=== PATIENT | female | born 1965 | race African-American/Black ===

== ENCOUNTER 2017-03-10 20:36 | Emergency (ER) | payer BC ==
[~2017-03-10] VITALS: Ht 167.6 cm; Wt 90.9 kg
[~2017-03-10 20:36] MED LIST: ACET-1359 PO; ASPI500T19 PO; EPIN0.3P8 IM; ETOD300C26 PO; HYDR200T39 PO; IBUP200C11 PO; MYCO250C6 PO; TRAM-40 PO; [UNRECOGNIZED DRUG - CODE] PO
[2017-03-10 20:44] VITALS: Ht 167.6 cm; Wt 90.9 kg
[2017-03-10] MEDS ORDERED: AZIT250T94 PO (21:04)
[2017-03-10] MEDS ORDERED: FLUC150T17 PO (21:05)
[2017-03-10] MEDS ORDERED: HYDR-902 PO (21:05)
--- NOTE | 2017-03-10 21:08 | ERD ---
ER Documentation Chief Complaint Date/Time DATE: 03/10/17 TIME: 21:06 Chief Complaint sore throat x 2 days with a cough HPI This is a 51-year-old female with a sore throat and cough for the past 3 days. She did describes her throat as a sharp pain when she swallows with a dry cough and some fever of 103. No hoarse voice no headache no vomiting shortness of breath or neck swelling ROS All systems reviewed and are negative except as per history of present illness. Medications Home Meds Active Scripts Fluconazole* (Diflucan*) 150 Mg Tablet, 150 MG PO ONCE, #2 TAB repeat dose in 7 days Prov:AYDIN WHEELER DO 03/10/17 Hydrocodone/Acetaminophen ([place] 10-325 Tablet) 1 Each Tablet, 1 TAB PO Q6H Y for PAIN, #20 TAB Prov:AYDIN WHEELER DO 03/10/17 Azithromycin* (Zithromax*) 250 Mg Tablet, 250 MG PO .ZPACK DIRECTED, #6 TAB TAKE 500 MG (2 TABS) THE FIRST DAY THEN 250 MG (1 TAB) DAYS 2-5 Prov:AYDIN WHEELER DO 03/10/17 Tramadol Hcl* (Ultram*) 50 Mg Tablet, 50 MG PO Q6H Y for PAIN, #1 TAB Prov:SOLEDAD AGUIAR MD 05/30/16 Reported Medications Aspirin (TK ADVANCED) 500 Mg Tablet, 500 MG PO BID 06/09/13 Ibuprofen* (Advil*) 200 Mg Capsule, 200 MG PO TID 06/09/13 Acetaminophen (TYLENOL 500 MG TAB) 500 Mg Tab, 500 MG PO BID Y 06/09/13 Epinephrine (Epipen) 0.3 Mg/0.3/Syringe Pen.injctr, 0.3 MG IM Y 04/29/12 Mycophenolate Mofetil (Cellcept) 250 Mg Capsule, 250 MG PO DAILY for 14 Days 04/28/12 Hydroxychloroquine Sulfate* (Hydroxychloroquine Sulfate*) 200 Mg Tablet, 200 MG PO BID 04/28/12 Etodolac (Etodolac) 300 Mg Capsule, 300 MG PO BID 04/28/12 Hydrocodone Bit/Acetaminophen (Hydrocodone-Apap 7.5-325 Mg Tb) 1 Tab Tablet, 1 TAB PO Q8 Y 04/28/12 Allergies Allergies: Coded Allergies: morphine (Verified Allergy, Severe, hives, 06/09/13) kiwi (Verified Allergy, Mild, foods allergy,tinglings lips, 06/09/13) red (food color) (Verified Allergy, Mild, tinglings lips, 06/09/13) PMhx/Soc History of Surgery: Yes (see notes) Anesthesia Reaction: No Hx Neurological Disorder: Yes (MYASTHENIA GRAVIS, SYSTEMIC LUPUS ERYTHEMATOSUS) Hx Respiratory Disorders: Yes (Asthma) Hx Cardiac Disorders: No Hx Psychiatric Problems: No Hx Miscellaneous Medical Probl: Yes (see notes) Hx Alcohol Use: Yes (OCCASIONALLY) Hx Substance Use: No Hx Tobacco Use: No Smoking Status: Never smoker FmHx Family History: No coronary disease Physical Exam Vitals Vital Signs Date Time Temp Pulse Resp B/P Pulse Ox O2 Delivery O2 Flow Rate FiO2 03/10/17 20:44 98.2 101 18 139/83 99 Physical Exam Const: Well-developed, well-nourished Head: Atraumatic, normocephalic Eyes: Normal Conjunctiva, PERRLA, EOMI, normal sclera, no nystagmus ENT: Normal External Ears, oropharynx has swollen peritonsillar area and tonsils with deep red throat and exudate, no airway compromise nose and Mouth, moist mucus membranes. Neck: Full range of motion. No meningismus, no lymphadenopathy. Resp: Clear to auscultation bilaterally, no wheezing, rhonchi, rales Cardio: Regular rate and rhythm, no murmurs, S1 S2 present Abd: Soft, non tender x 4, non distended. Normal bowel sounds, no guarding or rebound, no pulsitile abdominal masses or bruits Skin: No petechiae or rashes, no ecchymosis , no maculopapular rash Back: No midline or flank tenderness Ext: No cyanosis, or edema, FROM x 4, normal inspection, neurovascularly intact x 4 Neur: Awake and alert, STR 5/5 x 4, sensation intact x 4, no focal findings, cerebellum intact Psych: Normal Mood and Affect Procedures/MDM We will give Bicillin LA intramuscularly as well as Zithromax and pain Departure Diagnosis: Primary Impression: Pharyngitis Pharyngitis/tonsillitis etiology: unspecified etiology Qualified Code: J02.9 - Pharyngitis, unspecified etiology Condition: Stable Patient Instructions: When Your Child Has Pharyngitis or Tonsillitis , Pharyngitis, Strep (Presumed) AYDIN WHEELER DO Mar 10, 2017 21:08
[2017-03-10] MEDS ORDERED: LIDOCAINE 1% (MDV) 20 ML INJ IM ONE (21:30)
[2017-03-10] MEDS ORDERED: PENICILLIN G BENZ 1.2 MIL UNIT SYG IM ONE (21:30)
== END 2017-03-10 21:45 | disposition home or self-care (01) ==
LOC: E/R 20:36
DX: J02.9 Acute pharyngitis, unspecified (principal); J45.909 Unspecified asthma, uncomplicated; Z79.82 Long term (current) use of aspirin
CPT/HCPCS: 96372; 99284; J0561

== ENCOUNTER 2017-03-23 01:14 | Emergency (ER) | payer BC ==
[~2017-03-23] VITALS: Wt 87.0 kg
[~2017-03-23 01:14] MED LIST changes: +AZIT250T94 PO; +FLUC150T17 PO; +HYDR-902 PO
[2017-03-23] MEDS ORDERED: KETOROLAC 30 MG INJ IM STA (01:30)
[2017-03-23] MEDS ORDERED: NAPR-260 PO (01:36)
[2017-03-23] MEDS: OXYCODONE/ACETAMINOPHEN (5/325) TAB PO ONE ×2 (01:38→01:56)
--- NOTE | 2017-03-23 03:01 | ERD ---
ER Documentation Chief Complaint Date/Time DATE: 03/23/17 TIME: 02:57 Chief Complaint Left jaw pain HPI 51-year-old woman complains of left lower molar dental pain which radiates down to the left inferior mandible. She states she has a dentist appointment scheduled in 2 days for dental bridge repair. She denies discharge from the tooth or gingiva, no sore throat, no difficulty swallowing or speaking. Patient was diagnosed with pharyngitis from this ED just about a week ago and prescribed oral antibiotics and opioid analgesics. She has had no chest pain or shortness of breath, no headache or neck pain, no paresis or paresthesias. ROS All systems reviewed and are negative except as per history of present illness. Medications Home Meds Active Scripts Naproxen* (Naprosyn*) 500 Mg Tablet, 500 MG PO BID Y for PAIN AND/OR INFLAMMATION, #30 TAB Prov:LUPE FUNES MD 03/23/17 Fluconazole* (Diflucan*) 150 Mg Tablet, 150 MG PO ONCE, #2 TAB repeat dose in 7 days Prov:AYDIN WHEELER DO 03/10/17 Hydrocodone/Acetaminophen ([place] 10-325 Tablet) 1 Each Tablet, 1 TAB PO Q6H Y for PAIN, #20 TAB Prov:AYDIN WHEELER DO 03/10/17 Azithromycin* (Zithromax*) 250 Mg Tablet, 250 MG PO .ZPACK DIRECTED, #6 TAB TAKE 500 MG (2 TABS) THE FIRST DAY THEN 250 MG (1 TAB) DAYS 2-5 Prov:AYDIN WHEELER DO 03/10/17 Tramadol Hcl* (Ultram*) 50 Mg Tablet, 50 MG PO Q6H Y for PAIN, #1 TAB Prov:SOLEDAD AGUIAR MD 05/30/16 Reported Medications Aspirin (TK ADVANCED) 500 Mg Tablet, 500 MG PO BID 06/09/13 Ibuprofen* (Advil*) 200 Mg Capsule, 200 MG PO TID 06/09/13 Acetaminophen (TYLENOL 500 MG TAB) 500 Mg Tab, 500 MG PO BID Y 06/09/13 Epinephrine (Epipen) 0.3 Mg/0.3/Syringe Pen.injctr, 0.3 MG IM Y 04/29/12 Mycophenolate Mofetil (Cellcept) 250 Mg Capsule, 250 MG PO DAILY for 14 Days 04/28/12 Hydroxychloroquine Sulfate* (Hydroxychloroquine Sulfate*) 200 Mg Tablet, 200 MG PO BID 04/28/12 Etodolac (Etodolac) 300 Mg Capsule, 300 MG PO BID 04/28/12 Hydrocodone Bit/Acetaminophen (Hydrocodone-Apap 7.5-325 Mg Tb) 1 Tab Tablet, 1 TAB PO Q8 Y 04/28/12 Allergies Allergies: Coded Allergies: morphine (Verified Allergy, Severe, hives, 06/09/13) kiwi (Verified Allergy, Mild, foods allergy,tinglings lips, 06/09/13) red (food color) (Verified Allergy, Mild, tinglings lips, 06/09/13) PMhx/Soc Past medical history reviewed History of Surgery: Yes (see notes) Anesthesia Reaction: No Hx Neurological Disorder: Yes (MYASTHENIA GRAVIS, SYSTEMIC LUPUS ERYTHEMATOSUS) Hx Respiratory Disorders: Yes (Asthma) Hx Cardiac Disorders: No Hx Psychiatric Problems: No Hx Miscellaneous Medical Probl: Yes (see notes) Hx Alcohol Use: Yes (OCCASIONALLY) Hx Substance Use: No Hx Tobacco Use: No Physical Exam Vitals Vital Signs Date Time Temp Pulse Resp B/P Pulse Ox O2 Delivery O2 Flow Rate FiO2 03/23/17 01:16 97.8 84 20 124/84 98 Physical Exam GENERAL: Well-developed, well-nourished, well-hydrated, in no apparent distress , looks nontoxic in appearance HEENT: Moist mucous membranes, pink conjunctiva, no cervical spine tenderness or step-off deformities, no goiter, no jaundice or icterus, extraocular movements intact without pain. No submandibular induration, and no pharyngeal erythema NEURO: Alert and oriented 3, cranial nerves II through XII intact bilaterally, pupils equal round reactive to light, no focal deficits or facial asymmetry, sensation intact distally Strength 5/5 in upper and lower extremities bilaterally CARDIAC: Regular rate and rhythm, no murmurs rubs or gallops LUNGS: Clear bilaterally no wheezing crackles or stridor ABDOMEN: Soft nontender, no guarding, no rigidity, no rebound, no psoas sign no obturator sign. Normoactive bowel sounds SKIN: Warm and dry to touch, no abrasions, contusions, or hematomas, no lacerations, no ecchymosis, no target lesions, and without ulcers EXTREMITIES: No clubbing cyanosis or edema, calves are bilaterally symmetrical, no Homans sign, no popliteal cord sign. Distal pulses equal and bilateral PSYCH: Normal affect without agitation or irritability Results 24 hrs Current Medications Medications (Trade) Dose Ordered Sig/Yisel Route PRN Reason Start Time Stop Time Status Last Admin Dose Admin Ketorolac Tromethamine (Toradol) 30 mg ONCE STAT IM 03/23/17 01:30 03/23/17 01:31 DC 03/23/17 01:35 Oxycodone/ Acetaminophen (Percocet (5/ 325)) 1 tab ONCE ONCE PO 03/23/17 02:00 03/23/17 02:01 DC 03/23/17 01:56 Procedures/MDM I administered Percocet 1 tablet p.o. and Toradol 30 mg intramuscular injection. Patient states her dental pain and jaw pain did improve after medications. She has dentist follow-up scheduled in 2 days. Patient will be managed as an outpatient I deferred opioid analgesic therapy or antibiotic therapy to her PMD and dentist. Patient feels much better at this time, and vital signs are normal, symptoms have improved. I did give strict instructions to return to the ED if symptoms continue or worsen, patient will otherwise follow-up with primary care physician. Patient understood instructions and agreed to plan. Disclaimer: Inadvertent spelling and grammatical errors are likely due to EHR/ dictation software use and do not reflect on the overall quality of patient care. Also, please note that the electronic time recorded on this note does not necessarily reflect the actual time of the patient encounter. Departure Diagnosis: Primary Impression: Pain, dental Condition: Good Patient Instructions: Dental Pain LUPE FUNES MD Mar 23, 2017 03:01
== END 2017-03-23 02:02 | disposition home or self-care (01) ==
LOC: E/R 01:14
DX: K08.89 Other specified disorders of teeth and supporting structures (principal); J45.909 Unspecified asthma, uncomplicated; Z79.82 Long term (current) use of aspirin
CPT/HCPCS: 96372; 99284; J1885

== ENCOUNTER 2017-03-27 10:46 | Emergency (ER) | payer BC ==
[~2017-03-27] VITALS: Ht 170.2 cm; Wt 70.0 kg
[~2017-03-27 10:46] MED LIST changes: +NAPR-260 PO
[2017-03-27 11:06] VITALS: Ht 170.2 cm; Wt 70.0 kg
[2017-03-27] MEDS ORDERED: ONDANSETRON 4 MG INJ IV STA (11:11)
[2017-03-27] MEDS ORDERED: HYDROmorphONE 1 MG/ML SYG IV STA (11:11)
[2017-03-27] MEDS ORDERED: AMPICILLIN/SULB 1.5GM/NS (PMX) 50 ML IVPB STA (11:11)
[2017-03-27] MEDS ORDERED: SOD CHLORIDE 0.9% 1,000 ML IV STA (11:11)
[2017-03-27] MEDS ORDERED: KETOROLAC 15 MG INJ IV STA (11:11)
[2017-03-27 11:35] LABS: BASOPHILS % 0.8 % (0.0-2.0); EOSINOPHILS # 0.1 10^3/ul (0.0-0.5); EOSINOPHILS % 1.4 % (0.0-7.0); HEMATOCRIT 36.9 % (37.0-47.0); LYMPHOCYTES # 1.9 10^3/ul (0.8-2.9); MEAN CORPUSCULAR HEMOGLOBIN 30.5 pg (29.0-33.0); MEAN CORPUSCULAR HGB CONC 32.5 g/dl (32.0-37.0); MEAN CORPUSCULAR VOLUME 93.7 fl (82.0-101.0); MEAN PLATELET VOLUME 9.8 fl (7.4-10.4); MONOCYTE # 0.5 10^3/ul (0.3-0.9); MONOCYTES % 8.7 % (0.0-11.0); NEUTROPHIL # 2.7 10^3/ul (1.6-7.5); NEUTROPHILS % 52.9 % (39.0-77.0); PLATELET COUNT 412 10^3/UL (140-415); RED BLOOD COUNT 3.94 10^6/ul (4.20-5.40); RED CELL DISTRIBUTION WIDTH 12.7 % (11.5-14.5); WHITE BLOOD COUNT 5.2 10^3/ul (4.8-10.8)
[2017-03-27 11:57] LABS: ALBUMIN 4.5 g/dl (3.3-4.9); BILIRUBIN,INDIRECT 0.5 mg/dl (0-1.1); BILIRUBIN,TOTAL 0.5 mg/dl (0.2-1.3); CALCIUM 10.5 mg/dl (8.4-10.2); CREATININE 0.83 mg/dl (0.44-1.00); POTASSIUM 4.1 mmol/L (3.5-5.1)
[2017-03-27] MEDS ORDERED: SOD CHLORIDE 0.9% 100 ML ONE (12:14)
[2017-03-27] MEDS ORDERED: IOHEXOL 300MG/ML 150 ML BTL ONE (12:14)
--- NOTE | 2017-03-27 13:01 | RADRPT ---
PROCEDURE: CT facial bones and neck with contrast CLINICAL INDICATION: Abscess, pain; recent left root canal. TECHNIQUE: A CT of the facial bones and neck was performed on a multidetector CT scanner utilizing thin axial images after the intravenous administration of 100 cc Isovue contrast. No reported comp lication. Sagittal and coronal reconstructions were provided. The CTDIvol is 10 mGy and the DLP is 316mGy-cm. One or more of the following dose reduction techniques were used: Automated exposure con trol, Adjustment of the mA and/or kV according to patient size, and/or use of iterative reconstructi on technique. COMPARISON: None available. FINDINGS: Extensive streak artifact from dental hardware obscures the oral cavity and lower facial soft tissue s on CT. Inflammatory stranding of the left anterior vitamin manager space is visualized. No definite ri m-enhancing fluid collection or aggressive erosive changes to the mandible are identified. There is trace left inferior maxillary sinus mucosal thickening. No layering sinus fluid identified. The bila teral pre-styloid parapharyngeal space is unremarkable. No retropharyngeal fluid collection is seen. No significant airway narrowing. Bilateral parotid and submandibular glands are unremarkable. The m ajor cervical vasculature are patent. Multinodular thyroid gland with largest nodule measuring 9 mm in the left lobe. No acute facial bone fracture identified. Degenerative changes of the cervical spi ne. IMPRESSION: Extensive streak artifact from dental hardware obscures the oral cavity and lower facial soft tissue s on CT. Inflammatory stranding of the left anterior vitamin manager space may be due to postoperative c hanges. No definite abscess or aggressive erosive changes to the mandible are identified. See details in the findings. RPTAT: AA .Harris Vergara MD, MD Date Time Electronically viewed and signed by .Harris Vergara MD, MD on 03/27/2017 13:01 .T/
--- NOTE | 2017-03-27 13:01 | RADRPT ---
PROCEDURE: CT facial bones and neck with contrast CLINICAL INDICATION: Abscess, pain; recent left root canal. TECHNIQUE: A CT of the facial bones and neck was performed on a multidetector CT scanner utilizing thin axial images after the intravenous administration of 100 cc Isovue contrast. No reported comp lication. Sagittal and coronal reconstructions were provided. The CTDIvol is 10 mGy and the DLP is 316mGy-cm. One or more of the following dose reduction techniques were used: Automated exposure con trol, Adjustment of the mA and/or kV according to patient size, and/or use of iterative reconstructi on technique. COMPARISON: None available. FINDINGS: Extensive streak artifact from dental hardware obscures the oral cavity and lower facial soft tissue s on CT. Inflammatory stranding of the left anterior company laborer space is visualized. No definite ri m-enhancing fluid collection or aggressive erosive changes to the mandible are identified. There is trace left inferior maxillary sinus mucosal thickening. No layering sinus fluid identified. The bila teral pre-styloid parapharyngeal space is unremarkable. No retropharyngeal fluid collection is seen. No significant airway narrowing. Bilateral parotid and submandibular glands are unremarkable. The m ajor cervical vasculature are patent. Multinodular thyroid gland with largest nodule measuring 9 mm in the left lobe. No acute facial bone fracture identified. Degenerative changes of the cervical spi ne. IMPRESSION: Extensive streak artifact from dental hardware obscures the oral cavity and lower facial soft tissue s on CT. Inflammatory stranding of the left anterior company laborer space may be due to postoperative c hanges. No definite abscess or aggressive erosive changes to the mandible are identified. See details in the findings. RPTAT: AA .Harris Vergara MD, MD Date Time Electronically viewed and signed by .Harris Vergara MD, MD on 03/27/2017 13:00 .T/
[2017-03-27] MEDS ORDERED: DEXAMETHASONE 10 MG/ML 1 ML INJ IV ONE (14:00)
[2017-03-27] MEDS ORDERED: TRAM-40 PO (14:41)
--- NOTE | 2017-03-27 14:50 | ERD ---
ER Documentation Chief Complaint Date/Time DATE: 03/27/17 TIME: 14:42 Chief Complaint LEFT SIDE OF JAW SWELLING AFTER DENTAL WORK FRIDAY HPI This 51-year-old female presents with left-sided jaw pain and swelling. History significant for being seen for dental pain last week. She had a root canal 4 days ago. She had significant swelling earlier in the week which is improved although pain is increased recently with difficulty opening her mouth pain beneath her left ear. She is able to tolerate p.o.'s. She has no measured fevers. She is taking ibuprofen for pain.Patient has a history of lupus and recently stopped a prolonged course of prednisone 20 mg a day ROS All systems reviewed and are negative except as per history of present illness. Medications Home Meds Active Scripts Tramadol Hcl* (Ultram*) 50 Mg Tablet, 50 MG PO Q6H Y for PAIN for 20 Days, TAB Prov:FADIA FELICIANO MD 03/27/17 Naproxen* (Naprosyn*) 500 Mg Tablet, 500 MG PO BID Y for PAIN AND/OR INFLAMMATION, #30 TAB Prov:LUPE FUNES MD 03/23/17 Hydrocodone/Acetaminophen ([place] 10-325 Tablet) 1 Each Tablet, 1 TAB PO Q6H Y for PAIN, #20 TAB Prov:AYDIN WHEELER DO 03/10/17 Tramadol Hcl* (Ultram*) 50 Mg Tablet, 50 MG PO Q6H Y for PAIN, #1 TAB Prov:SOLEDAD AGUIAR MD 05/30/16 Reported Medications Aspirin (TK ADVANCED) 500 Mg Tablet, 500 MG PO BID 06/09/13 Ibuprofen* (Advil*) 200 Mg Capsule, 200 MG PO TID 06/09/13 Acetaminophen (TYLENOL 500 MG TAB) 500 Mg Tab, 500 MG PO BID Y 06/09/13 Epinephrine (Epipen) 0.3 Mg/0.3/Syringe Pen.injctr, 0.3 MG IM Y 04/29/12 Mycophenolate Mofetil (Cellcept) 250 Mg Capsule, 250 MG PO DAILY for 14 Days 04/28/12 Hydroxychloroquine Sulfate* (Hydroxychloroquine Sulfate*) 200 Mg Tablet, 200 MG PO BID 04/28/12 Etodolac (Etodolac) 300 Mg Capsule, 300 MG PO BID 04/28/12 Hydrocodone Bit/Acetaminophen (Hydrocodone-Apap 7.5-325 Mg Tb) 1 Tab Tablet, 1 TAB PO Q8 Y 04/28/12 Discontinued Scripts Fluconazole* (Diflucan*) 150 Mg Tablet, 150 MG PO ONCE, #2 TAB repeat dose in 7 days Prov:AYDIN WHEELER DO 03/10/17 Azithromycin* (Zithromax*) 250 Mg Tablet, 250 MG PO .ZPACK DIRECTED, #6 TAB TAKE 500 MG (2 TABS) THE FIRST DAY THEN 250 MG (1 TAB) DAYS 2-5 Prov:AYDIN WHEELER DO 03/10/17 Allergies Allergies: Coded Allergies: morphine (Verified Allergy, Severe, hives, 06/09/13) kiwi (Verified Allergy, Mild, foods allergy,tinglings lips, 06/09/13) red (food color) (Verified Allergy, Mild, tinglings lips, 06/09/13) PMhx/Soc History of Surgery: Yes (see notes) Anesthesia Reaction: No Hx Neurological Disorder: Yes (MYASTHENIA GRAVIS, SYSTEMIC LUPUS ERYTHEMATOSUS) Hx Respiratory Disorders: Yes (Asthma) Hx Cardiac Disorders: No Hx Psychiatric Problems: No Hx Miscellaneous Medical Probl: Yes (see notes) Hx Alcohol Use: Yes (OCCASIONALLY) Hx Substance Use: No Hx Tobacco Use: No Physical Exam Vitals Vital Signs Date Time Temp Pulse Resp B/P Pulse Ox O2 Delivery O2 Flow Rate FiO2 03/27/17 11:06 99.0 80 18 132/98 100 Physical Exam Const: []Alert, uncomfortable due to pain, no apparent distress. Head: Atraumatic Eyes: Normal Conjunctiva ENT: Normal External Ears, Nose and Mouth.There is some tenderness below the left molar with recent root canal evidence. There is tenderness in the left anterior cervical area with some mild swelling. There is tenderness in the left infra-auricular area. Airways patent. Neck: Full range of motion..~ No meningismus. Resp: Clear to auscultation bilaterally Cardio: Regular rate and rhythm, no murmurs Abd: Soft, non tender, non distended. Normal bowel sounds Skin: No petechiae or rashes Back: No midline or flank tenderness Ext: No cyanosis, or edema Neur: Awake and alert Psych: Normal Mood and Affect Result Diagram: 03/27/17 1127 03/27/17 1127 Results 24 hrs Laboratory Tests Test 03/27/17 11:27 White Blood Count 5.210^3/ul Red Blood Count 3.9410^6/ul Hemoglobin 12.0g/dl Hematocrit 36.9% Mean Corpuscular Volume 93.7fl Mean Corpuscular Hemoglobin 30.5pg Mean Corpuscular Hemoglobin Concent 32.5g/dl Red Cell Distribution Width 12.7% Platelet Count 71129^3/UL Mean Platelet Volume 9.8fl Neutrophils % 52.9% Lymphocytes % 36.0% Monocytes % 8.7% Eosinophils % 1.4% Basophils % 0.8% Nucleated Red Blood Cells % 0.0/100WBC Neutrophils # 2.710^3/ul Lymphocytes # 1.910^3/ul Monocytes # 0.510^3/ul Eosinophils # 0.110^3/ul Basophils # 0.010^3/ul Nucleated Red Blood Cells # 0.010^3/ul Sodium Level 139mmol/L Potassium Level 4.1mmol/L Chloride Level 105mmol/L Carbon Dioxide Level 26mmol/L Anion Gap 12 Blood Urea Nitrogen 12mg/dl Creatinine 0.83mg/dl Glucose Level 98mg/dl Calcium Level 10.5mg/dl Total Bilirubin 0.5mg/dl Direct Bilirubin 0.00mg/dl Indirect Bilirubin 0.5mg/dl Aspartate Amino Transf (AST/SGOT) 41IU/L Alanine Aminotransferase (ALT/SGPT) 43IU/L Alkaline Phosphatase 99IU/L Total Protein 9.0g/dl Albumin 4.5g/dl Globulin 4.50g/dl Albumin/Globulin Ratio 1.00 Current Medications Medications (Trade) Dose Ordered Sig/Yisel Route PRN Reason Start Time Stop Time Status Last Admin Dose Admin Sodium Chloride (NS) 1,000 ml @ 1,000 mls/hr Q1H STAT IV 03/27/17 11:11 03/27/17 12:10 DC 03/27/17 11:30 Hydromorphone HCl (Dilaudid) 1 mg ONCE STAT IV 03/27/17 11:11 03/27/17 11:14 DC 03/27/17 11:46 Ondansetron HCl (Zofran Inj) 4 mg ONCE STAT IV 03/27/17 11:11 03/27/17 11:14 DC 03/27/17 11:29 Ketorolac Tromethamine 15 mg 15 mg ONCE STAT IV 03/27/17 11:11 03/27/17 11:14 DC 03/27/17 11:29 Ampicillin Sodium/ Sulbactam Sodium (Unasyn 1.5gm/NS (Pmx)) 50 ml @ 100 mls/hr ONCE STAT IVPB 03/27/17 11:11 03/27/17 11:40 DC 03/27/17 11:45 IV Flush 10 ml 10 ml STK-MED ONCE .ROUTE 03/27/17 12:14 03/27/17 12:15 DC 03/27/17 12:45 Sodium Chloride (NS) 100 ml @ ud STK-MED ONCE .ROUTE 03/27/17 12:14 03/27/17 12:15 DC 03/27/17 12:45 Iohexol (Omnipaque 300mg/ ml) 150 ml STK-MED ONCE .ROUTE 03/27/17 12:14 03/27/17 12:15 DC 03/27/17 12:45 Dexamethasone (Decadron) 8 mg ONCE ONCE IV 03/27/17 14:00 03/27/17 14:01 DC Procedures/MDM Patient presents with left-sided neck and dental pain after dental procedure 4 days ago. Swelling appears improved due to a picture obtained by the patient although increase in pain with swelling of the left anterior neck concerning with difficulty opening mouth. IV was obtained. Patient was given 1 L normal saline IV, Unasyn 1.[address] facial bones and neck shows no acute abscess. There is streak artifact from hardware but no acute findings or bony abnormalities. Patient was given Decadron 8 mg IV for stress dose steroids given recent prolonged steroid use and recent stoppage of steroids. Patient was given Toradol 30 mg IV as well as Dilaudid 1 mg IV. Patient will be discharged home instructions to continue clindamycin, drink plenty of fluids we will add tramadol for pain control. She should continue ibuprofen. Patient is advised to follow-up with dentist or return for new or worsening symptoms such as difficulty swallowing, difficulty breathing, fevers, worsening swelling, new worsening symptoms. Departure Diagnosis: Primary Impression: Pain, dental Condition: Stable Patient Instructions: Dental Pain Additional Instructions: Recommend continue prednisone as prescribed until symptoms improve. No evidence of abscess or acute complications on CT or laboratory work today. Drink plenty of fluids and continue clindamycin. Recheck with dentist or return for new or worsening symptoms. FADIA FELICIANO MD Mar 27, 2017 14:50
[2017-03-27] MEDS ORDERED: ACET1TAB40 PO (15:12)
[2017-03-27] MEDS ORDERED: PRED20TA PO (15:37)
[2017-03-27 16:01] VITALS: BP 134/80; PULSE 80; RESP 16; TEMP 97.9
== END 2017-03-27 16:38 | disposition home or self-care (01) ==
LOC: E/R 10:46
DX: K08.89 Other specified disorders of teeth and supporting structures (principal); J45.909 Unspecified asthma, uncomplicated; Z79.82 Long term (current) use of aspirin
CPT/HCPCS: 36415; 70486; 70491; 80053; 85025; 96374; 96375; 96376; 99285; J0295; J1100; J1170; J1885; J2405; J7030; Q9967

== ENCOUNTER 2017-04-28 21:11 | Emergency (ER) | payer BC ==
[~2017-04-28] VITALS: Ht 167.6 cm; Wt 86.4 kg
[~2017-04-28 21:11] MED LIST changes: +ACET1TAB40 PO; -AZIT250T94 PO; -ETOD300C26 PO; +ETOD300C29 PO; -FLUC150T17 PO; +PRED20TA PO
[2017-04-28] MEDS ORDERED: FAMOTIDINE 20 MG INJ IV STA (21:15)
[2017-04-28] MEDS ORDERED: DIPHENHYDRAMINE 50 MG INJ IV STA (21:15)
[2017-04-28] MEDS ORDERED: METHYLPREDNISOLONE 125 MG INJ IV STA (21:15)
[2017-04-28] MEDS ORDERED: EPINEPHrine 1 MG INJ IM STA ×2 (21:15→21:35)
[2017-04-28 21:16] VITALS: Ht 167.6 cm; Wt 86.4 kg
[2017-04-28] MEDS ORDERED: ALBUTEROL 0.083% (NEB) 2.5 MG/3 ML AMP NEB STA (21:27)
[2017-04-28] MEDS ORDERED: EPIN0.3P4 IM (22:53)
[2017-04-28] MEDS ORDERED: PRED50TA PO (22:53)
[2017-04-28 23:06] VITALS: BP 162/81; PULSE 101; RESP 16
--- NOTE | 2017-04-29 00:35 | ERD ---
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 While she was working, there was a patient with a dog in the waiting room. She occasionally has allergies to dogs. She started having itchy eyes, watery eyes, and the runny nose. She took Benadryl but her symptoms started to get worse. Now she is complaining of difficulty breathing. She denies any feeling of throat swelling. She did use her albuterol without relief. ROS All systems reviewed and are negative except as per history of present illness. Medications Home Meds Active Scripts Epinephrine (Epipen 2-Alex) 0.3 Mg/0.3 Ml Pen.injctr, 0.3 MG IM DIRECTED Y for ALLERGIC REACTION, #1 EA Prov:HARVEY TSAI MD 04/28/17 Prednisone* (Prednisone*) 50 Mg Tablet, 50 MG PO DAILY for 4 Days, TAB Prov:HARVEY TSAI MD 04/28/17 Prednisone* (Prednisone*) 20 Mg Tab, 20 MG PO DAILY for 7 Days, #7 TAB Prov:FADIA FELICIANO MD 03/27/17 Acetaminophen with Codeine (Acetaminophen-Cod #3 Tablet) 1 Each Tablet, 1 TAB PO Q6H Y for PAIN, #14 TAB Prov:FADIA FELICIANO MD 03/27/17 Naproxen* (Naprosyn*) 500 Mg Tablet, 500 MG PO BID Y for PAIN AND/OR INFLAMMATION, #30 TAB Prov:LUPE FUNES MD 03/23/17 Hydrocodone/Acetaminophen (Cerulean 10-325 Tablet) 1 Each Tablet, 1 TAB PO Q6H Y for PAIN, #20 TAB Prov:AYDIN WHEELER DO 03/10/17 Tramadol Hcl* (Ultram*) 50 Mg Tablet, 50 MG PO Q6H Y for PAIN, #1 TAB Prov:SOLEDAD AGUIAR MD 05/30/16 Reported Medications Aspirin (TK ADVANCED) 500 Mg Tablet, 500 MG PO BID 06/09/13 Ibuprofen* (Advil*) 200 Mg Capsule, 200 MG PO TID 06/09/13 Acetaminophen (TYLENOL 500 MG TAB) 500 Mg Tab, 500 MG PO BID Y 06/09/13 Epinephrine (Epipen) 0.3 Mg/0.3/Syringe Pen.injctr, 0.3 MG IM Y 04/29/12 Mycophenolate Mofetil (Cellcept) 250 Mg Capsule, 250 MG PO DAILY for 14 Days 04/28/12 Hydroxychloroquine Sulfate* (Hydroxychloroquine Sulfate*) 200 Mg Tablet, 200 MG PO BID 04/28/12 Etodolac (Etodolac) 300 Mg Capsule, 300 MG PO BID 04/28/12 Hydrocodone Bit/Acetaminophen (Hydrocodone-Apap 7.5-325 Mg Tb) 1 Tab Tablet, 1 TAB PO Q8 Y 04/28/12 Allergies Allergies: Coded Allergies: morphine (Verified Allergy, Severe, hives, 06/09/13) kiwi (Verified Allergy, Mild, foods allergy,tinglings lips, 06/09/13) red (food color) (Verified Allergy, Mild, tinglings lips, 06/09/13) PMhx/Soc History of Surgery: Yes (see notes) Anesthesia Reaction: No Hx Neurological Disorder: Yes (MYASTHENIA GRAVIS, SYSTEMIC LUPUS ERYTHEMATOSUS) Hx Respiratory Disorders: Yes (Asthma) Hx Cardiac Disorders: No Hx Psychiatric Problems: No Hx Miscellaneous Medical Probl: Yes (see notes) Hx Alcohol Use: No Hx Substance Use: No Hx Tobacco Use: No FmHx Family History: No diabetes Physical Exam Vitals Vital Signs Date Time Temp Pulse Resp B/P Pulse Ox O2 Delivery O2 Flow Rate FiO2 04/28/17 23:06 101 16 162/81 98 Room Air 04/28/17 21:43 Nasal Cannula 2 04/28/17 21:32 101 22 100 21 04/28/17 21:16 98.2 93 30 151/100 100 04/28/17 21:16 2.0 Physical Exam Const: Sitting up in bed, appears to be in respiratory distress, speaking in short sentences, audible wheezing Head: Atraumatic Eyes: Normal Conjunctiva. Lids normal without swelling ENT: Normal External Ears, Nose and Mouth. No tongue or lip swelling. No stridor or drooling. Posterior oropharynx normal without swelling. Neck: Full range of motion. No swelling. No meningismus. Resp: Diffuse expiratory wheezing. Good air movement. Cardio: Regular rate and rhythm, no murmurs Abd: Soft, non tender, non distended. Normal bowel sounds Skin: No petechiae or rashes Back: No midline or flank tenderness Ext: No cyanosis, or edema Neur: Awake and alert Psych: Normal Mood and Affect Results 24 hrs Current Medications Medications (Trade) Dose Ordered Sig/Yisel Route PRN Reason Start Time Stop Time Status Last Admin Dose Admin Diphenhydramine HCl (Benadryl) 25 mg ONCE STAT IV 04/28/17 21:15 04/28/17 21:16 DC 04/28/17 21:23 Epinephrine (EPINEPHrine) 0.3 mg ONCE STAT IM 04/28/17 21:15 04/28/17 21:16 DC 04/28/17 21:22 Famotidine (Pepcid Iv) 20 mg ONCE STAT IV 04/28/17 21:15 04/28/17 21:16 DC 04/28/17 21:23 Methylprednisolone Sodium Succinate (Solu-Medrol) 125 mg ONCE STAT IV 04/28/17 21:15 04/28/17 21:16 DC 04/28/17 21:23 Albuterol (Proventil 0.083% (Neb)) 5 mg ONCE STAT NEB 04/28/17 21:27 04/28/17 21:28 DC 04/28/17 21:31 Epinephrine (EPINEPHrine) 0.3 mg ONCE STAT IM 04/28/17 21:35 04/28/17 21:36 DC 04/28/17 21:49 Procedures/MDM Patient is presenting with bronchospasm likely secondary to an allergic reaction from the dog she was exposed to. There are no skin findings consistent with allergy. Vitals were all within normal limits other than hypertension. Patient was treated with epinephrine IM, Benadryl, Pepcid, and Solu-Medrol IV. She required another dose of epinephrine for respiratory distress. She also was given albuterol. Upon reevaluation, the patient's symptoms had significantly improved. Patient's allergic symptoms have stabilized while they have been evaluated in the department without evidence of persistent systemic reaction. Patient is healthy and capable of treating and responding to rebound reactions. Patient appropriate for outpatient allergy work up and treatment. I will discharge her with 4 more days of prednisone and an EpiPen. Return precautions were given. Critical Care Time: 40 minutes Treatments/Evaluations: Close monitoring and treatment of unstable vital signs, cardiorespiratory, and neurologic status, while maintaining tight balance of fluid, respiratory, and cardiac interventions. This time includes discussing the case with the patient and the patients family. This time does not include all procedures stated elsewhere in this record. This time also includes reviewing old records, labs and radiological studies. This time includes examining and re-examining the patient. Additionally, this time also includes arranging care with admitting and consulting physicians. Departure Diagnosis: Primary Impression: Allergic reaction Encounter type: initial encounter Qualified Code: T78.40XA - Allergic reaction, initial encounter Additional Impression: Acute bronchospasm Condition: Stable Patient Instructions: Allergic Reaction, Other (General), Bronchospasm (Adult) HARVEY TSAI MD Apr 29, 2017 00:35
== END 2017-04-28 23:07 | disposition home or self-care (01) ==
LOC: FTE 21:11
DX: J30.81 Allergic rhinitis due to animal (cat) (dog) hair and dander (principal); J98.01 Acute bronchospasm; Z79.82 Long term (current) use of aspirin
CPT/HCPCS: 94664; 96372; 96374; 96375; 99291; J0171; J1200; J2930

== ENCOUNTER 2017-10-06 22:34 | Emergency (ER) | END 2017-10-07 03:09 | disposition home or self-care (01) ==

== ENCOUNTER 2017-10-07 12:17 | Emergency (ER) | END 2017-10-07 13:11 | disposition home or self-care (01) ==